=== PATIENT | male | born 1980 | race Caucasian/White ===

== ENCOUNTER 2017-07-27 15:06 | Outpatient (CLI) | payer MEDICARE, MEDICAID ==
[~2017-07-27 15:06] MED LIST: Gadobenate Dimeglumine 529 MG/1 ML (20ML VIAL) ONE
--- NOTE | 2017-07-27 17:29 | MRI ---
PRE AND POSTCONTRAST ENHANCED MRI IMAGES BRAIN 07/27/17 Comparison made to a previous MRI of brain from 12/17/14. Multiplanar and multisequence pre and postcontrast enhanced MRI images demonstrate again right middle cranial fossa craniotomy changes. Encephalomalacia and gliotic changes seen in the right temporal lo be. There is some encephalomalacia changes also seen in the inferior posterior aspect of the right fr ontal lobe. MRI appearance remains stable and unchanged. Postsurgical dural enhancement changes remai n. No significant interval changes noted since the previous comparison MRI from 12/17/14. IMPRESSION: Right skull base and inferior frontal lobe and right middle cranial fossa surgical changes. No eviden ce of newly developed masses or lesions seen. MRI appearance of the brain is stable and unchanged. POS: [facility]
== END 2017-07-27 15:07 | disposition home or self-care (01) ==
LOC: TBSIIMAG 15:06
PROVIDERS: ATTEND Neurological Surgery
DX: D49.6 Neoplasm of unspecified behavior of brain (principal); Z98.890 Other specified postprocedural states
CPT/HCPCS: 70553; A9579